=== PATIENT | male | born 1940 | race Caucasian/White ===

== ENCOUNTER → 2018-11-01 | Outpatient (CLI) | payer MEDICARE, BC ==
[~2018-11-01] MED LIST: LIDOCAINE 1% (MPF) 5 ML VIAL SC ONE
== END | disposition home or self-care (01) ==
LOC: RAD 10:15
PROVIDERS: ATTEND Internal Medicine Infectious Disease
DX: M86.8X7 Other osteomyelitis, ankle and foot (principal)
CPT/HCPCS: 36569; 71045; 76937